=== PATIENT | female | born 1990 | race American Indian/Alaskan Native ===

== ENCOUNTER 2017-03-11 14:50 | Emergency (ER) | payer OTHER ==
[2017-03-11 15:59] LABS: Basophils % (Auto) 0.6 % (0.0-1.8); Hematocrit 40.8 % (30.3-42.9); Mean Corpuscular HGB Conc 32 % (30-34); Mean Corpuscular Volume 80 fl (79-97); Platelet Count 180 K/mm3 (140-440); Red Blood Count 5.08 M/mm3 (3.65-5.03); Red Cell Distribution Width 15.3 % (13.2-15.2); White Blood Count 5.8 K/mm3 (4.5-11.0)
[2017-03-11 16:01] LABS: Mean Corpuscular Hemoglobin 26 pg (28-32)
[2017-03-11 16:12] LABS: Anion Gap 16 mmol/L; BUN/Creatinine Ratio 11.42; Blood Urea Nitrogen 8 mg/dL (7-17); Carbon Dioxide 27 mmol/L (22-30); Chloride 102.4 mmol/L (98-107); Glucose 61 mg/dL (65-100); Sodium 141 mmol/L (137-145)
[2017-03-11 19:34] LABS: Bilirubin,Urine NEG (Negative); Blood,Urine NEG (Negative); Ketones,Urine NEG (Negative); Leukocyte Esterase,Urine NEG (Negative); Mucus,Urine 3+ /HPF; Nitrite,Urine NEG (Negative); Protein,Urine <15 mg/dL mg/dL (Negative)
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
[2017-03-11 19:40] LABS: Urine Drugs of Abuse Note Disclamer
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
[2017-03-12] MEDS: BENADRYL PO SCH (21:40)
--- NOTE | 2017-03-13 10:38 | Progress Note ---
Subjective - Reason for Consult Consult date: 03/13/17 Reason for consult: Psychiatry Follow up - Chief Complaint Chief complaint: "I feel better todayf" Mrs. Aldridge is a 26-year-old black female 1013 from her outpatient provider. She was then brought to the emergency department for safety, medical clearance, and transfer to an inpatient psychiatric facility. Today patient presents calm, cooperative but elusive with her answers to questions. She could not tell me what occurred at her mental health appointment. After that appointment, the patient was brought to [facility] by EMS. She admits to having mood changes which have caused her to be incarcerated in the past. She stated that she lied about being suicidal on admission. She is concerned about getting her SSI approved. She believes if she is suicidal her will be approved for SSI. Currently patient is homeless, but stated, "I can go to my grandmother's house." She denies saying she told the ER Dr that she was hearing voices from the devil. She acknowledged sleeping "okay" and stated I eat "good" all the time. She denies SI /HI's and AVH's at this time. Also, she denies past SI's or suicidal attempts. Positive for marijuana. Mental Status Exam - Vital signs Last Vital Signs Temp 98.7 F 03/12/17 17:57 Pulse 62 03/12/17 17:57 Resp 18 03/12/17 17:57 BP 112/61 03/12/17 17:57 Pulse Ox 100 03/12/17 17:57 - Exam Narrative exam: MSE: Appearance: Disheveled, cooperative Behavior: good eye contact Speech: regular rate and tone Mood: "I feel okay today" Affect: Flat Thought Process: circumstantial Thought Content: denies SI/HI's and AHV's Cognition: A/Ox4 Insight: poor Judgment: poor Assessment and Plan Impression: Mood DO NOS. Mrs. Aldridge is a 26-year-old black female 1013 from her outpatient provider. She was then brought to the emergency department for safety , medical clearance, and transfer to an inpatient psychiatric facility. Today patient presents calm, cooperative but elusive with her answers to questions. She could not tell me what occurred at her mental health appointment. After that appointment, the patient was brought to [facility] by EMS. She denies SI/HI's and AVH's today. Positive for marijuana. Patient is homeless. Recommendation/Plan: Continue 1013 with possible placement to inpatient or outpatient psy facility. Continue Zyprexa 5mg PO HS for mood Benadryl 25 mg PO HS for sleep. Discussed metabolic side effects with patient reference Zyprexa. Social Service involvement patient is homeless.
[2017-03-13] MEDS: BENADRYL PO SCH (22:18)
--- NOTE | 2017-03-14 12:20 | Progress Note ---
Subjective - Reason for Consult Consult date: 03/14/17 Reason for consult: psychiatric follow up - Chief Complaint Chief complaint: "I want to go home" Mrs. Aldridge is a 26-year-old black female 1013 from her outpatient provider. She was then brought to the emergency department for safety, medical clearance, and transfer to an inpatient psychiatric facility. She is calm and cooperative. She discussed how she wants to go home to see her children. She started Zyprexa after her initial evaluation. She reports this is helpful for her mood and would like to stay on it. She is also taking Benadryl for sleep. She denies SI/ HI/AVH. She reports having support of her grandmother despite her lack of stable housing. Mental Status Exam - Vital signs Last Vital Signs Temp 98.8 F 03/14/17 08:05 Pulse 57 L 03/14/17 08:05 Resp 16 03/14/17 08:05 BP 106/69 03/14/17 08:05 Pulse Ox 100 03/14/17 08:05 - Exam Orientation: time, place, person Affect: normal Mood: anxious Thought content: other (no SI/No HI) Thought Process: Intact Perceptions: none Speech: normal rate and pattern Concentration: focused Motor activity: normal Level of consciousness: alert Memory: Intact Sleep Symptoms: Difficulty Falling Asleep Appetite: increased Interaction: irritable, cooperative Assessment and Plan Impression: Mood DO NOS. Mrs. Aldridge is a 26-year-old black female 1013 from her outpatient provider. She was then brought to the emergency department for safety , medical clearance, and transfer to an inpatient psychiatric facility. Today patient presents calm, cooperative She denies SI/HI's and AVH's today. Positive for marijuana. Patient is homeless. Recommendation/Plan: Continue 1013 with possible placement to inpatient. Continue Zyprexa 5mg PO HS for mood Benadryl 25 mg PO HS for sleep. Discussed metabolic side effects with patient reference Zyprexa. Social Service involvement patient is homeless. We will further evaluate suicidality and need for continued involuntary status in the next 24 hours. She currently denies SI/HI and does not present with psychosis - Patient Problems (1) Bipolar disorder Status: Acute Qualifiers: Active/Remission status: A Current bipolar episode type: C Current episode severity: C Psychotic features: P Most recent bipolar episode type: M
[2017-03-14] MEDS: BENADRYL PO SCH (22:10)
[2017-03-15 09:12] VITALS: BP 97/71
--- NOTE | 2017-03-15 09:25 | Progress Note ---
<FLY MCKNIGHT - Last Filed: 03/15/17 10:22> Subjective - Reason for Consult Consult date: 03/15/17 Reason for consult: Psychiatry Follow-up - Chief Complaint Chief complaint: "I want to go home" Mrs. Aldridge is a 26-year-old black female 1013 from her outpatient provider. She was then brought to the emergency department for safety, medical clearance, and transfer to an inpatient psychiatric facility. Today patient is calm and cooperative with a linear thought process. She admits that she needed this time away and being here at [facility] helped her clear her head. She stated, the Zyprexa is "working." She denies SI/HI's and AVH's at this time. Patient is currently homesless. Mental Status Exam - Vital signs Last Vital Signs Temp 98.0 F 03/15/17 09:11 Pulse 72 03/15/17 09:11 Resp 16 03/15/17 09:11 BP 97/71 03/15/17 09:11 Pulse Ox 100 03/15/17 09:11 - Exam Narrative exam: MSE: Appearance: cooperative Behavior: good eye contact Speech: regular rate and tone Mood: "I feel better today" Affect: flat Thought Process: linear Thought Content: denies SI/HI's and AHV's Cognition: A/Ox4 Insight: fair Judgment: fair Assessment and Plan Impression: Mood DO NOS. Mrs. Aldridge is a 26-year-old black female 1013 from her outpatient provider. She was then brought to the emergency department for safety , medical clearance, and transfer to an inpatient psychiatric facility. Today patient is calm and cooperative with a linear thought process. She admits that she needed this time away and being here at [facility] helped her clear her head. She stated, the Zyprexa is "working." She denies SI/HI's and AVH's at this time. Patient is currently homeless. She denies SI/HI's and AVH's today. Positive for marijuana. Patient took Zyprexa when she was in residential for 5 month. Spoke with her grandmother (Jennifer Vidal) and will support the patient once discharged. Patient will reside with her grandmother. The grandmother would like for the patient to be seen in an outpatient setting. Recommendation/Plan: Rescind 1013. Outpatient psy services given to patient for her local area. Safety contract completed with patient. <DEENA VARGAS - Last Filed: 03/15/17 11:48> Mental Status Exam - Vital signs Last Vital Signs Temp 98.0 F 03/15/17 09:11 Pulse 72 03/15/17 09:11 Resp 16 03/15/17 09:11 BP 97/71 03/15/17 09:11 Pulse Ox 100 03/15/17 09:11
== END 2017-03-15 12:08 | disposition home or self-care (01) ==
LOC: ED 14:50 → EEVIPCON 14:50 → ED 03-15 12:08
DX: R45.851 Suicidal ideations (principal); R44.0 Auditory hallucinations; F12.90 Cannabis use, unspecified, uncomplicated; F17.200 Nicotine dependence, unspecified, uncomplicated
CPT/HCPCS: 36415; 80048; 80307; 81001; 84703; 85025; 99284; G0480; 80320